=== PATIENT | male | born 1970 | race Caucasian/White ===

== ENCOUNTER 2019-04-30 01:28 | Emergency (ER) | payer MEDICAID ==
[~2019-04-30] VITALS: Ht 182.9 cm; Wt 80.0 kg
[~2019-04-30 01:28] MED LIST: ATEN50TA41 PO; CLON1TAB PO; ESOM20CA PO; LOSA25TA25 PO; OMEP20CA9; QUET300T5 PO; SERT100T PO; SERT50TA PO; TRAZ150T62
[2019-04-30 01:30] VITALS: BP 138/78
--- NOTE | 2019-04-30 01:33 | NUR ---
PT REMAINS AGITATED AT THIS TIME, DR COLEMAN IS TALKING WITH THE PT AND PT REMAINS UNCOOPERATIVE, PT STATES THAT HE DENIES THAT HE IS HOMELESS, STATES THAT HE HAS A HOME. PT REMAINS ANGRY AND STATES THAT HE WANTS TO LEAVE AND THAT HE IS GOING HOME AND CURRENTLY DENIES SI/HI. WALKS OUT BACK DOOR AT THIS TIME WITH STEADY GAIT, ENCOURAGED TO STAY, PT REMAINS HOSTILE AND THREATENING.
== END 2019-04-30 01:41 | disposition left against medical advice (07) ==
LOC: ED 01:35
DX: F10.10 Alcohol abuse, uncomplicated (principal)
CPT/HCPCS: 99283

== ENCOUNTER 2019-06-03 07:53 | Emergency (ER) | payer MEDICAID ==
[~2019-06-03] VITALS: Ht 182.9 cm; Wt 80.0 kg
--- NOTE | 2019-06-03 08:27 | NUR ---
EKG COMPLETED. LAB AT BEDSIDE FOR BLOOD WORK. PT C/O EPIGASTRIC PAIN. ERP NOTIFIED. PT DENIES ANY FURTHER NEEDS OR CONCERNS AT THIS TIME. CALL LIGHT IN REACH, [facility] SITTER AT BEDSIDE.
[2019-06-03] MEDS ORDERED: MAALOX/HYOSCYAMINE/LIDOCAINE 45 ML BTL ONE (08:29)
[2019-06-03] MEDS ORDERED: MAALOX/HYOSCYAMINE/LIDOCAINE 45 ML BTL PO ONE (08:30)
[2019-06-03] MEDS ORDERED: PLEASE ENTER HEIGHT AND WEIGHT MC SCH (08:30)
[2019-06-03] MEDS ORDERED: SODIUM CHLORIDE FLUSH 10ML SYR IVF ONE (08:30)
[2019-06-03 08:33] LABS: BASOPHILS # (AUTO) 0.04 x10^3/uL (0-0.1); BASOPHILS % (AUTO) 1 % (0-1); EOSINOPHILS # (AUTO) 0.01 x10^3/uL (0-0.4); EOSINOPHILS % (AUTO) 0 % (1-7); LYMPHOCYTES # (AUTO) 1.02 x10^3/uL (1-3.4); LYMPHOCYTES % (AUTO) 13 % (22-44); MD NO; MEAN CORPUSCULAR HEMOGLOBIN 30.5 pg (27.5-34.5); MEAN CORPUSCULAR HGB CONC 32.9 g/dL (33.2-36.2); MEAN CORPUSCULAR VOLUME 92.8 fL (81-97); MEAN PLATELET VOLUME 7.1 fL (7.4-10.4); MONOCYTES # (AUTO) 0.43 x10^3/uL (0.2-0.8); MONOCYTES % (AUTO) 5 % (2-9); NEUTROPHILS # (AUTO) 6.42 x10^3/uL (1.8-6.8); NEUTROPHILS % (AUTO) 81 % (42-75); PLATELET COUNT 215 x10^3/uL (130-400); RED BLOOD COUNT 4.88 x10^6/uL (4.38-5.82); RED CELL DISTRIBUTION WIDTH 13.5 % (9.4-14.8)
[2019-06-03 08:45] LABS: ANION GAP 8 mmol/L (5-15); CALCIUM 9.3 mg/dL (8.5-10.1); CHLORIDE 102 mmol/L (98-107); CREATININE 1.15 mg/dL (0.7-1.3)
[2019-06-03 09:47] VITALS: BP 109/56
--- NOTE | 2019-06-03 09:58 | NUR ---
PT UPDATED ON PLAN OF CARE AND INTENT TO DISCHARGE. THROUGHPUT RN NOTIFIED FOR TRANSPORTATION. PT DENIES ANY NEEDS OR CONCERNS, [place] SITTER CONTINUES AT BEDSIDE. CALL LIGHT IN REACH.
--- NOTE | 2019-06-03 10:06 | NUR ---
THROUGHPUT RN: REPORT GIVEN TO JOANIE AT [facility].
--- NOTE | 2019-06-03 10:29 | NUR ---
JOSUÉ RN: SPOKE W/ LAUREN AT [facility] WAITING ON APPROVAL FOR [facility] FROM [facility] TO [facility].
== END 2019-06-03 11:26 ==
LOC: ED 10:08
DX: I10 Essential (primary) hypertension (principal); K21.9 Gastro-esophageal reflux disease without esophagitis; F17.200 Nicotine dependence, unspecified, uncomplicated
CPT/HCPCS: 36415; 80048; 82040; 85025; 93005; 99285

== ENCOUNTER 2019-06-27 14:33 | Inpatient (IN) | payer MEDICAID ==
[~2019-06-27] VITALS: Ht 182.9 cm; Wt 71.6 kg
--- NOTE | 2019-06-27 14:52 | NUR ---
BELONGINGS SECURED IN LOCKER. EQUIPMENT AND SUPPLIES SECURED BEHIND PULL DOWN DOOR. LEARNING AND DEVELOPMENT COORDINATOR MADE AWARE OF NEED FOR SITTER.
[2019-06-27 15:05] LABS: BASOPHILS # (AUTO) 0.01 x10^3/uL (0-0.1); BASOPHILS % (AUTO) 0 % (0-1); EOSINOPHILS # (AUTO) 0.12 x10^3/uL (0-0.4); EOSINOPHILS % (AUTO) 2 % (1-7); LYMPHOCYTES # (AUTO) 1.31 x10^3/uL (1-3.4); LYMPHOCYTES % (AUTO) 18 % (22-44); MD NO; MEAN CORPUSCULAR HEMOGLOBIN 30.5 pg (27.5-34.5); MEAN CORPUSCULAR HGB CONC 33.4 g/dL (33.2-36.2); MEAN CORPUSCULAR VOLUME 91.4 fL (81-97); MEAN PLATELET VOLUME 6.9 fL (7.4-10.4); MONOCYTES # (AUTO) 0.72 x10^3/uL (0.2-0.8); MONOCYTES % (AUTO) 10 % (2-9); NEUTROPHILS # (AUTO) 5.27 x10^3/uL (1.8-6.8); NEUTROPHILS % (AUTO) 71 % (42-75); PLATELET COUNT 235 x10^3/uL (130-400); RED CELL DISTRIBUTION WIDTH 14.4 % (9.4-14.8)
--- NOTE | 2019-06-27 15:08 | NUR ---
GAEL GRAPHIC MANAGER EXAMINING PT
[2019-06-27 15:18] LABS: ALBUMIN 4.1 g/dL (3.4-5.0); ANION GAP 7 mmol/L (5-15); CALCIUM 9.3 mg/dL (8.5-10.1); CHLORIDE 102 mmol/L (98-107)
[2019-06-27 15:20] LABS: SALICYLATE LEVEL < 1.7 mg/dL (2.8-20.0)
[2019-06-27 15:21] LABS: ALANINE AMINOTRANSFERASE 31 U/L (12-78); ALKALINE PHOSPHATASE 98 U/L (45-117); BILIRUBIN,TOTAL 0.7 mg/dL (0.2-1.0); CREATININE 1.17 mg/dL (0.7-1.3); TOTAL PROTEIN 8.4 g/dL (6.4-8.2)
--- NOTE | 2019-06-27 15:27 | NUR ---
SITTER OUTSIDE ROOM IN DIRECT VIEW OF PT
--- NOTE | 2019-06-27 15:30 | NUR ---
PT SLEEPING, ON MONITOR.
[2019-06-27] MEDS: SODIUM CHLORIDE 0.9% 1,000 ML IV SCH ×2 (16:46→21:00)
[2019-06-27] MEDS ORDERED: OMEP40CA42 PO (16:48)
[2019-06-27] MEDS ORDERED: QUET400T4 PO (16:48)
[2019-06-27] MEDS ORDERED: ATEN50TA41 PO (16:48)
--- NOTE | 2019-06-27 16:53 | NUR ---
HOSPITALIST EXAMINING PT
--- NOTE | 2019-06-27 17:15 | NUR ---
PT TALKS TO STAFF AND ASKING FOR FOOD AND TO USE URINAL. PT THEN BACK TO SLEEP.
[2019-06-27 17:58] LABS: AMPHETAMINE SCREEN, URINE Positive (Negative); BARBITURATE SCREEN, URINE Negative (Negative); BENZODIAZEPINE SCREEN, URINE Negative (Negative); CANNABINOID SCREEN, URINE Positive (Negative); COCAINE SCREEN, URINE Negative (Negative); METHADONE SCREEN, URINE Negative (Negative); OPIATE SCREEN, URINE Negative (Negative)
--- NOTE | 2019-06-27 18:25 | NUR ---
PT DROWSY BUT AROUSABLE, CONTINUE TO MONITOR
--- NOTE | 2019-06-27 18:50 | NUR ---
PROVIDED DINNER TRAY
--- NOTE | 2019-06-27 19:01 | NUR ---
REPORT TO ELIZABETH PECK
--- NOTE | 2019-06-27 19:11 | NUR ---
PT EATING DINNER. NADN. ROOM SECURE. PT IN DIRECT SIGHT OF SITTER.
--- NOTE | 2019-06-27 19:22 | NUR ---
REPORT GIVEN TO EMERALD PECK.
[2019-06-27 20:41] VITALS: BP 99/58
[2019-06-28 01:34] VITALS: BP 117/63
[2019-06-28] MEDS: SODIUM CHLORIDE 0.9% 1,000 ML IV SCH ×3 (04:58→21:02)
[2019-06-28 05:14] LABS: BASOPHILS # (AUTO) 0.02 x10^3/uL (0-0.1); BASOPHILS % (AUTO) 1 % (0-1); EOSINOPHILS # (AUTO) 0.17 x10^3/uL (0-0.4); EOSINOPHILS % (AUTO) 4 % (1-7); LYMPHOCYTES # (AUTO) 1.23 x10^3/uL (1-3.4); LYMPHOCYTES % (AUTO) 26 % (22-44); MD NO; MEAN CORPUSCULAR HEMOGLOBIN 30.1 pg (27.5-34.5); MEAN CORPUSCULAR HGB CONC 33.2 g/dL (33.2-36.2); MEAN CORPUSCULAR VOLUME 90.9 fL (81-97); MEAN PLATELET VOLUME 7.3 fL (7.4-10.4); MONOCYTES # (AUTO) 0.49 x10^3/uL (0.2-0.8); MONOCYTES % (AUTO) 11 % (2-9); NEUTROPHILS # (AUTO) 2.75 x10^3/uL (1.8-6.8); NEUTROPHILS % (AUTO) 59 % (42-75); PLATELET COUNT 183 x10^3/uL (130-400); RED BLOOD COUNT 4.14 x10^6/uL (4.38-5.82); RED CELL DISTRIBUTION WIDTH 14.4 % (9.4-14.8)
[2019-06-28 05:23] LABS: ANION GAP 5 mmol/L (5-15); CALCIUM 8.6 mg/dL (8.5-10.1); CHLORIDE 110 mmol/L (98-107)
[2019-06-28 05:26] LABS: ALANINE AMINOTRANSFERASE 27 U/L (12-78); ALKALINE PHOSPHATASE 86 U/L (45-117); BILIRUBIN,TOTAL 0.3 mg/dL (0.2-1.0); CREATININE 1.17 mg/dL (0.7-1.3); TOTAL PROTEIN 6.2 g/dL (6.4-8.2)
[2019-06-28 07:33] VITALS: BP 128/76
[2019-06-28] MEDS: FOLIC ACID 1 MG TABLET PO SCH (09:01)
[2019-06-28] MEDS: THIAMINE 100MG TABLET PO SCH (09:01)
[2019-06-28] MEDS: MULTIVITAMIN 1 TABLET PO SCH (09:01)
[2019-06-28 12:40] VITALS: BP 115/68
[2019-06-28 19:30] VITALS: BP 136/71
[2019-06-29 02:27] VITALS: BP 140/82
[2019-06-29] MEDS: SODIUM CHLORIDE 0.9% 1,000 ML IV SCH ×2 (03:23→08:46)
[2019-06-29 06:21] VITALS: BP 161/85
[2019-06-29] MEDS ORDERED: ZIPRASIDONE 20MG CAPSULE PO ONE (08:30)
[2019-06-29] MEDS: THIAMINE 100MG TABLET PO SCH (08:43)
[2019-06-29] MEDS: MULTIVITAMIN 1 TABLET PO SCH (08:43)
[2019-06-29] MEDS: FOLIC ACID 1 MG TABLET PO SCH (08:43)
[2019-06-29] MEDS ORDERED: ZIPRASIDONE 20 MG INJ IM ONE (12:00)
[2019-06-29] MEDS ORDERED: SERT100T PO (15:57)
[2019-06-29] MEDS ORDERED: LOSA50TA2 PO (15:57)
[2019-06-29] MEDS ORDERED: QUET400T4 PO (15:58)
== END 2019-06-29 14:20 | DRG 918 ==
LOC: ED 15:07 → EDIP 16:35 → 4EST 20:15
PROVIDERS: ADMIT Emergency Medicine; ATTEND Emergency Medicine
DX: T43.592A Poisoning by other antipsychotics and neuroleptics, intentional self-harm, initial encounter (principal); I10 Essential (primary) hypertension; K21.9 Gastro-esophageal reflux disease without esophagitis; F15.10 Other stimulant abuse, uncomplicated; F10.10 Alcohol abuse, uncomplicated; F31.9 Bipolar disorder, unspecified; Y92.89 Other specified places as the place of occurrence of the external cause; Z59.0 Homelessness; Z91.19 Patient's noncompliance with other medical treatment and regimen; Z72.0 Tobacco use; Z88.5 Allergy status to narcotic agent; Z88.0 Allergy status to penicillin
CPT/HCPCS: 36415; 80053; 80307; 85025; 93005; 96372; 99285; G0378; J3486; J7030

== ENCOUNTER 2019-06-29 13:22 | Inpatient (IN) | payer MEDICAID ==
[~2019-06-29] VITALS: Ht 182.9 cm; Wt 64.2 kg
[~2019-06-29 13:22] MED LIST changes: +OMEP40CA42 PO; +QUET400T4 PO
[2019-06-29] MEDS ORDERED: DOCUSATE 100 MG CAPSULE PO PRN (14:00)
[2019-06-29] MEDS ORDERED: ACETAMINOPHEN 325 MG TABLET PO PRN (14:00)
[2019-06-29] MEDS ORDERED: POLYETHYLENE GLYCOL 17 GM PACKET PO PRN (14:00)
[2019-06-29] MEDS ORDERED: ONDANSETRON ODT 4 MG PO PRN (14:00)
[2019-06-29] MEDS ORDERED: BISACODYL 10 MG SUPP PR PRN (14:00)
[2019-06-29 14:54] VITALS: BP 101/76
[2019-06-29] MEDS ORDERED: SERT100T PO (15:57)
[2019-06-29] MEDS ORDERED: LOSA50TA2 PO (15:57)
[2019-06-29] MEDS ORDERED: QUET400T4 PO (15:58)
[2019-06-29 19:07] VITALS: BP 158/90
[2019-06-29 20:06] LABS: FREE T4 (FREE THYROXINE) 0.81 ng/dL (0.76-1.46); LDL/HDL RATIO 2.2 (0.5-3.0)
[2019-06-29] MEDS: QUETIAPINE 200 MG TABLET PO SCH (20:19)
[2019-06-29] MEDS: LOSARTAN 50MG TABLET PO SCH (20:40)
[2019-06-29] MEDS: ATENOLOL 50 MG TABLET PO SCH (20:40)
[2019-06-30] MEDS: OMEPRAZOLE 20 MG CAPSULE.DR PO SCH (06:07)
[2019-06-30] MEDS: ATENOLOL 50 MG TABLET PO SCH ×2 (06:07→17:32)
[2019-06-30 07:00] VITALS: BP 145/95
[2019-06-30] MEDS: SERTRALINE 100MG TABLET PO SCH (09:11)
[2019-06-30] MEDS: LOSARTAN 50MG TABLET PO SCH ×2 (09:11→20:33)
[2019-06-30 12:22] LABS: MICROSCOPIC NOT IND
[2019-06-30 12:23] LABS: CULTURE INDICATED? NO
[2019-06-30 19:21] VITALS: BP 153/85
[2019-06-30] MEDS: ZIPRASIDONE 40MG CAPSULE PO SCH (20:31)
[2019-06-30] MEDS: DIVALPROEX 500 MG TAB.ER.24H PO SCH (20:31)
[2019-06-30] MEDS: QUETIAPINE 200 MG TABLET PO SCH ×2 (20:32)
[2019-07-01 05:42] VITALS: BP 110/71
[2019-07-01] MEDS: OMEPRAZOLE 20 MG CAPSULE.DR PO SCH (06:29)
[2019-07-01] MEDS: ATENOLOL 50 MG TABLET PO SCH ×2 (06:30→18:01)
[2019-07-01 07:37] VITALS: BP 125/79
[2019-07-01] MEDS: SERTRALINE 100MG TABLET PO SCH (08:39)
[2019-07-01] MEDS: ZIPRASIDONE 40MG CAPSULE PO SCH ×2 (08:40→20:16)
[2019-07-01] MEDS: LOSARTAN 50MG TABLET PO SCH ×2 (10:11→20:17)
[2019-07-01 17:54] VITALS: BP 125/68
[2019-07-01 19:41] VITALS: BP 113/69
[2019-07-01] MEDS: QUETIAPINE 200 MG TABLET PO SCH ×2 (20:16→20:17)
[2019-07-01] MEDS: DIVALPROEX 500 MG TAB.ER.24H PO SCH (20:16)
[2019-07-02 06:04] VITALS: BP 111/67
[2019-07-02] MEDS: OMEPRAZOLE 20 MG CAPSULE.DR PO SCH (06:07)
[2019-07-02] MEDS: ATENOLOL 50 MG TABLET PO SCH ×2 (06:08→17:00)
[2019-07-02 07:15] VITALS: BP 112/71
[2019-07-02] MEDS: LOSARTAN 50MG TABLET PO SCH ×2 (08:43→20:34)
[2019-07-02] MEDS: SERTRALINE 100MG TABLET PO SCH (08:43)
[2019-07-02] MEDS: ZIPRASIDONE 40MG CAPSULE PO SCH ×2 (08:44→20:33)
[2019-07-02 16:58] VITALS: BP 114/72
[2019-07-02 19:52] VITALS: BP 109/70
[2019-07-02] MEDS: DIVALPROEX 500 MG TAB.ER.24H PO SCH (20:33)
[2019-07-02] MEDS: QUETIAPINE 200 MG TABLET PO SCH ×2 (20:34→20:35)
[2019-07-03] MEDS: OMEPRAZOLE 20 MG CAPSULE.DR PO SCH (05:56)
[2019-07-03] MEDS: ATENOLOL 50 MG TABLET PO SCH ×2 (05:56→17:30)
[2019-07-03 07:40] VITALS: BP 118/77
[2019-07-03] MEDS: ZIPRASIDONE 40MG CAPSULE PO SCH ×2 (10:15→20:45)
[2019-07-03] MEDS: LOSARTAN 50MG TABLET PO SCH ×2 (10:15→20:45)
[2019-07-03] MEDS: SERTRALINE 100MG TABLET PO SCH (10:15)
[2019-07-03 19:26] VITALS: BP 108/64
[2019-07-03] MEDS: QUETIAPINE 200 MG TABLET PO SCH (20:45)
[2019-07-03] MEDS: DIVALPROEX 500 MG TAB.ER.24H PO SCH (20:51)
[2019-07-04] MEDS: ATENOLOL 50 MG TABLET PO SCH ×2 (06:15→18:11)
[2019-07-04] MEDS: OMEPRAZOLE 20 MG CAPSULE.DR PO SCH (06:15)
[2019-07-04 07:57] VITALS: BP 108/73
[2019-07-04] MEDS: SERTRALINE 100MG TABLET PO SCH (08:32)
[2019-07-04] MEDS: ZIPRASIDONE 40MG CAPSULE PO SCH ×2 (08:32→20:22)
[2019-07-04] MEDS: LOSARTAN 50MG TABLET PO SCH ×2 (08:32→20:22)
[2019-07-04] MEDS: NICOTINE GUM 2 MG BC PRN (10:15)
[2019-07-04] MEDS: hydrOXyzine 50MG TABLET PO PRN (13:52)
[2019-07-04 19:37] VITALS: BP 126/70
[2019-07-04] MEDS: DIVALPROEX 500 MG TAB.ER.24H PO SCH (20:22)
[2019-07-04] MEDS: QUETIAPINE 200 MG TABLET PO SCH (20:22)
[2019-07-05] MEDS: OMEPRAZOLE 20 MG CAPSULE.DR PO SCH (06:08)
[2019-07-05 07:27] VITALS: BP 132/73
[2019-07-05] MEDS ORDERED: ZIPRASIDONE 20MG CAPSULE ONE (09:00)
[2019-07-05] MEDS: ATENOLOL 50 MG TABLET PO SCH ×3 (09:03→20:17)
[2019-07-05] MEDS: LOSARTAN 50MG TABLET PO SCH ×2 (09:03→20:09)
[2019-07-05] MEDS: SERTRALINE 100MG TABLET PO SCH (09:03)
[2019-07-05] MEDS: ZIPRASIDONE 40MG CAPSULE PO SCH ×2 (09:04→20:09)
[2019-07-05] MEDS: NICOTINE GUM 2 MG BC PRN ×2 (09:14→17:55)
[2019-07-05] MEDS: hydrOXyzine 50MG TABLET PO PRN (11:16)
[2019-07-05] MEDS: QUETIAPINE 200 MG TABLET PO SCH (20:09)
[2019-07-05] MEDS: DIVALPROEX 500 MG TAB.ER.24H PO SCH (20:09)
[2019-07-05 20:10] VITALS: BP 125/78
[2019-07-06] MEDS: OMEPRAZOLE 20 MG CAPSULE.DR PO SCH (05:45)
[2019-07-06 07:38] VITALS: BP 110/69
[2019-07-06] MEDS: SERTRALINE 100MG TABLET PO SCH (09:00)
[2019-07-06] MEDS ORDERED: ZIPRASIDONE 20MG CAPSULE ONE (09:23)
[2019-07-06] MEDS: LOSARTAN 50MG TABLET PO SCH ×2 (09:25→20:33)
[2019-07-06] MEDS: ATENOLOL 50 MG TABLET PO SCH ×2 (09:25→20:32)
[2019-07-06] MEDS: ZIPRASIDONE 40MG CAPSULE PO SCH ×2 (09:33→20:32)
[2019-07-06] MEDS: NICOTINE GUM 2 MG BC PRN (09:36)
[2019-07-06 20:01] VITALS: BP 115/78
[2019-07-06] MEDS: QUETIAPINE 200 MG TABLET PO SCH (20:32)
[2019-07-06] MEDS: hydrOXyzine 50MG TABLET PO PRN (20:32)
[2019-07-06] MEDS: DIVALPROEX 500 MG TAB.ER.24H PO SCH (20:35)
[2019-07-07] MEDS: OMEPRAZOLE 20 MG CAPSULE.DR PO SCH (06:05)
[2019-07-07 07:20] VITALS: BP 127/85
[2019-07-07] MEDS: ZIPRASIDONE 40MG CAPSULE PO SCH (10:36)
[2019-07-07] MEDS: LOSARTAN 50MG TABLET PO SCH (10:36)
[2019-07-07] MEDS: SERTRALINE 100MG TABLET PO SCH (10:37)
[2019-07-07] MEDS: ATENOLOL 50 MG TABLET PO SCH (10:37)
== END 2019-07-07 10:55 | disposition home or self-care (01) | DRG 885 ==
LOC: 3E 14:46
PROVIDERS: ADMIT Psychiatry & Neurology Psychosomatic Medicine; ATTEND Psychiatry & Neurology Psychosomatic Medicine
DX: F31.60 Bipolar disorder, current episode mixed, unspecified (principal); F10.20 Alcohol dependence, uncomplicated; F17.200 Nicotine dependence, unspecified, uncomplicated; F41.9 Anxiety disorder, unspecified; Z88.6 Allergy status to analgesic agent; Z88.0 Allergy status to penicillin; F60.9 Personality disorder, unspecified; G47.00 Insomnia, unspecified; I10 Essential (primary) hypertension; I25.10 Atherosclerotic heart disease of native coronary artery without angina pectoris; K21.9 Gastro-esophageal reflux disease without esophagitis; Z79.899 Other long term (current) drug therapy
CPT/HCPCS: 36415; 71045; 80061; 81003; 82140; 84439; 84443; Q0162

== ENCOUNTER 2019-07-11 04:09 | Emergency (ER) | payer MEDICAID ==
[~2019-07-11] VITALS: Ht 182.9 cm; Wt 68.0 kg
[~2019-07-11 04:09] MED LIST changes: +LOSA50TA2 PO
--- NOTE | 2019-07-11 04:43 | NUR ---
PT CHANGED INTO GOWN. BELONGINGS PLACED IN 3 PT BELONGINGS BAGS AND 1 GREEN BAG. 4 BAGS TOTAL SECURED. SITTER AT DOORWAY IN SECURED ROOM.
[2019-07-11 05:34] LABS: BASOPHILS # (AUTO) 0.04 x10^3/uL (0-0.1); BASOPHILS % (AUTO) 1 % (0-1); EOSINOPHILS # (AUTO) 0.16 x10^3/uL (0-0.4); EOSINOPHILS % (AUTO) 2 % (1-7); LYMPHOCYTES # (AUTO) 1.56 x10^3/uL (1-3.4); LYMPHOCYTES % (AUTO) 22 % (22-44); MD NO; MEAN CORPUSCULAR HEMOGLOBIN 30.5 pg (27.5-34.5); MEAN CORPUSCULAR HGB CONC 33.7 g/dL (33.2-36.2); MEAN CORPUSCULAR VOLUME 90.4 fL (81-97); MEAN PLATELET VOLUME 7.6 fL (7.4-10.4); MONOCYTES # (AUTO) 0.69 x10^3/uL (0.2-0.8); MONOCYTES % (AUTO) 10 % (2-9); NEUTROPHILS # (AUTO) 4.55 x10^3/uL (1.8-6.8); NEUTROPHILS % (AUTO) 65 % (42-75); PLATELET COUNT 215 x10^3/uL (130-400); RED BLOOD COUNT 4.25 x10^6/uL (4.38-5.82); RED CELL DISTRIBUTION WIDTH 14.5 % (9.4-14.8)
--- NOTE | 2019-07-11 05:40 | NUR ---
URINE COLLECTED AND SENT TO LAB. SITTER OUTSIDE SECURED ROOM. WILL CONT TO MONITOR.
[2019-07-11 05:45] LABS: ALBUMIN 4.1 g/dL (3.4-5.0); ANION GAP 10 mmol/L (5-15); CHLORIDE 106 mmol/L (98-107); CREATININE 1.39 mg/dL (0.7-1.3); SALICYLATE LEVEL 2.3 mg/dL (2.8-20.0)
[2019-07-11 05:54] LABS: AMPHETAMINE SCREEN, URINE Positive (Negative); BARBITURATE SCREEN, URINE Negative (Negative); BENZODIAZEPINE SCREEN, URINE Negative (Negative); CANNABINOID SCREEN, URINE Positive (Negative); COCAINE SCREEN, URINE Negative (Negative); METHADONE SCREEN, URINE Negative (Negative); OPIATE SCREEN, URINE Negative (Negative)
--- NOTE | 2019-07-11 06:59 | NUR ---
CARE ASSUMED. PT RESTING ON GURNEY. CALM. SITTER AT BEDSIDE. PT DENIES NEEDS
[2019-07-11] MEDS ORDERED: ZIPRASIDONE 20 MG INJ IM ONE ×2 (07:46→08:00)
--- NOTE | 2019-07-11 08:50 | NUR ---
PT AGITATED WITH OVER HOLD STATUS. ATTEMPTED TO DEESCALATE. PT REFUSES TO RETURN TO ROOM. SECURITY CALLED. PT AGRESSIVE WITH SECURITY YELLING AND SWEARING. PT RESTRAINED ON GURNEY WITH 4POINT RESTRAINTS AND MEDICATED PER ORDERS Addendum: 07/11/19 at 1222 by JSHEA TIME CHANGE TO 0800
--- NOTE | 2019-07-11 09:25 | NUR ---
pt relaxed. asleep on [place]. responds to staff.
--- NOTE | 2019-07-11 11:50 | NUR ---
PT RELEASED FROM RESTRAINTS. PT COOPERATIVE WITH STAFF. PT GIVEN MEAL TRAY AND PO FLUIDS
--- NOTE | 2019-07-11 12:36 | NUR ---
700 URINE IN URINAL
--- NOTE | 2019-07-11 13:15 | NUR ---
REPORT FROM CISCO MAYO. PT ASLEEP IN BED ON HIS SIDE. NAD NOTED AT THIS TIME. SITTER OUTSIDE OF ROOM FOR DIRECT OBERVATIONS AND Q15 MIN SAFETY CHECKS.
--- NOTE | 2019-07-11 14:00 | NUR ---
PACKET FAXED TO [facility], [facility] AND [facility]
--- NOTE | 2019-07-11 14:24 | NUR ---
Krysta Romo is holding off on reviewing pt due to current aquity of current pts. Will be re-evaluating pt tomorrow.
--- NOTE | 2019-07-11 14:26 | NUR ---
PT RESTING IN BED, NAD NOTED AT THIS TIME. SITTER OUTSIDE OF ROOM FOR DIRECT OBSERVATION AND Q15 MIN SAFETY CHECKS. PT GIVEN PO FLUIDS.
--- NOTE | 2019-07-11 15:34 | NUR ---
PT LAYING BACK IN BED, GIVEN PO FLUIDS. DIET TRAY ODERED
--- NOTE | 2019-07-11 16:20 | NUR ---
CALL FROM RERE GUTIERREZ. REPORT GIVEN AND NOTIFIED OF PT'S [place] AND [place] PRESCRIPTIONS. NAD NOTED IN PT AT THIS TIME. RESPIRATIONS EVEN AND UNLABORED ON RA. WATCHING TELEVISION. SITTER OUTSIDE OF ROOM FOR DIRECT OBSERVATION AND Q15 MIN SAFETY CHECKS.
--- NOTE | 2019-07-11 17:31 | NUR ---
PT RECLINED IN BED WATCHING TELEVISION. NAD NOTED AT THIS TIME. PT FINISHED WITH FOOD. SITTER OUTSIDE OF ROOM FOR DIRECT OBSERVATION AND Q15 MIN SAFETY CHECKS.
--- NOTE | 2019-07-11 18:58 | NUR ---
REPORT TO CISOC FAIR. PT LAYING BACK WATCHING TELEVISION. NAD NOTED AT THIS TIME. SITTER OUTSIDE OF ROOM FOR DIRECT OBSERVATION AND Q15 MIN SAFETY CHECKS.
[2019-07-11] MEDS ORDERED: QUETIAPINE 100MG TABLET ONE (20:52)
[2019-07-11 20:56] VITALS: BP 172/98
[2019-07-11] MEDS ORDERED: QUETIAPINE 100MG TABLET PO SCH (21:00)
[2019-07-11] MEDS ORDERED: ZIPRASIDONE 40MG CAPSULE PO SCH (21:00)
--- NOTE | 2019-07-11 21:04 | NUR ---
PT RESTING ON [place]. MEDICATED PER AUG. PT DENIES FURTHER NEEDS AT THIS TIME.
--- NOTE | 2019-07-11 22:05 | NUR ---
PT PLACED ON HOSPITAL BED AND PROVIDED WATER. ALL NEEDS MET AT THIS TIME. SITTER IN HALLWAY WITHIN LINE OF SIGHT, ROOM SECURED
--- NOTE | 2019-07-11 23:01 | NUR ---
REPORT GIVEN TO LINDSEY DIAS. WILL CALL BACK.
--- NOTE | 2019-07-12 01:19 | NUR ---
ROMELIA RN: CALLED [facility] AND GAVE ALL PATIENT INFORMATION INCLUDING MEDICAID ID NUMBER LOOKED UP BY ADMITTING STAFF. PER [facility] THEY ARE UNABLE TO LOOK UP PT. MULLEN AWARE OF THIS. ETA [phone] FOR TRANSPORT TO [facility].
[2019-07-12] MEDS ORDERED: ATENOLOL 50 MG TABLET PO ONE (01:31)
[2019-07-12] MEDS ORDERED: LOSARTAN 50MG TABLET PO ONE (01:31)
[2019-07-12] MEDS ORDERED: SERTRALINE 100MG TABLET PO SCH (09:00)
== END 2019-07-12 01:54 ==
LOC: ED 04:51
DX: R45.851 Suicidal ideations (principal); F32.9 Major depressive disorder, single episode, unspecified; F10.129 Alcohol abuse with intoxication, unspecified; F15.129 Other stimulant abuse with intoxication, unspecified; F17.210 Nicotine dependence, cigarettes, uncomplicated; K21.9 Gastro-esophageal reflux disease without esophagitis; I10 Essential (primary) hypertension; Y90.0 Blood alcohol level of less than 20 mg/100 ml
CPT/HCPCS: 36415; 80048; 80307; 82040; 85025; 96372; 99285; J3486

== ENCOUNTER 2019-09-11 01:48 | Emergency (ER) | payer MEDICAID ==
[~2019-09-11] VITALS: Ht 182.9 cm; Wt 72.3 kg
[2019-09-11 01:50] VITALS: BP 168/90
--- NOTE | 2019-09-11 02:09 | NUR ---
PT SEATED IN CHAIR AT NURSES STATION FOR SAFETY, TALKING WITH DR MONGE. STATES THAT HE WALKED HERE A MILE TONIGHT AND THAT IT IS COLD OUT AND HE IS CURRENTLY HOMELESS. NO MENTION SI AT THIS TIME. PT PROVIDED WITH FLUIDS.
--- NOTE | 2019-09-11 02:43 | NUR ---
PT RESTING QUIETLY AT THIS TIME, NAD, HAS FINISHED PO JUICE.
--- NOTE | 2019-09-11 03:20 | NUR ---
SLEEPING QUIETLY, DENTURES FELL OUT ONTO FLOOR, PLACED IN BAG AND PLACED IN PTS R COAT POCKET
--- NOTE | 2019-09-11 05:12 | NUR ---
PT RESTING QUIETLY, RESP RATE EVEN AND REGULAR. AWAIT SOBRIETY FOR SAFE DISCHARGE PT TOLD MD HE "HAD A FEW BEERS" EARLIER.
--- NOTE | 2019-09-11 06:07 | NUR ---
PT AWAKE AND ALERT AT THIS TIME, OFFER OF CAB VOUCHER AND PT REFUSES STATES THAT HE JUST WANTS TO LEAVE. CONTINUE TO OFFER CAB VOUCHER AND PT REFUSES. AMBULATE OUT DOOR WITH STEADY GAIT.
== END 2019-09-11 06:28 | disposition left against medical advice (07) ==
LOC: ED 06:22
DX: F10.220 Alcohol dependence with intoxication, uncomplicated (principal); I10 Essential (primary) hypertension; K21.9 Gastro-esophageal reflux disease without esophagitis; Z72.9 Problem related to lifestyle, unspecified
CPT/HCPCS: 99281

== ENCOUNTER 2020-05-27 17:45 | Emergency (ER) | payer MEDICAID ==
[~2020-05-27] VITALS: Ht 182.9 cm; Wt 74.9 kg
--- NOTE | 2020-05-27 17:58 | NUR ---
manager equipment note: vodka drained in sink with pt permission
[2020-05-27] MEDS ORDERED: SODIUM CHLORIDE FLUSH 10ML SYR IVF ONE (18:30)
--- NOTE | 2020-05-27 18:41 | NUR ---
PT STATES HE PRESENTED TO ER BECAUSE HE HAS A HARD TIME BREATHING WHEN TAKING A DEEP BREATH. DENIES CP AT THIS TIME. WHEN ASKED HOW MUCH HE DRANK TODAY HE SAID HARLDY ANY ALCOHOL. PT HAD ARRIVED WITH A BOTTLE OF VODKA IN HIS HAND.
--- NOTE | 2020-05-27 19:03 | NUR ---
REPORT TO TERESITA PECK
[2020-05-27 19:18] LABS: BASOPHILS % (AUTO) 1 % (0-1); EOSINOPHILS % (AUTO) 3 % (1-7); LYMPHOCYTES % (AUTO) 36 % (22-44); MEAN CORPUSCULAR HEMOGLOBIN 32.2 pg (27.5-34.5); MEAN CORPUSCULAR HGB CONC 35.1 g/dL (33.2-36.2); MEAN PLATELET VOLUME 7.1 fL (7.4-10.4); MONOCYTES % (AUTO) 8 % (2-9); NEUTROPHILS % (AUTO) 52 % (42-75); PLATELET COUNT 225 x10^3/uL (130-400); RED BLOOD COUNT 4.56 x10^6/uL (4.38-5.82); RED CELL DISTRIBUTION WIDTH 16.4 % (9.4-14.8)
--- NOTE | 2020-05-27 19:22 | NUR ---
REPORT FROM DHAVAL PECK. PIV PLACED AND LABS DRAWN. PT SLEEPING IN NAD. CALL LIGHT IN REACH
[2020-05-27 19:27] LABS: MD NO
[2020-05-27 19:39] LABS: ALANINE AMINOTRANSFERASE 14 U/L (12-78); ALBUMIN 3.4 g/dL (3.4-5.0); ANION GAP 7 mmol/L (5-15); CALCIUM 8.3 mg/dL (8.5-10.1); CHLORIDE 108 mmol/L (98-107); CREATININE 1.06 mg/dL (0.7-1.3)
[2020-05-27 19:43] LABS: ALKALINE PHOSPHATASE 97 U/L (45-117); BILIRUBIN,TOTAL 0.2 mg/dL (0.2-1.0); TOTAL PROTEIN 7.4 g/dL (6.4-8.2); TROPONIN I < 0.015 ng/mL (0.000-0.045)
--- NOTE | 2020-05-27 20:27 | NUR ---
PT BACK FROM CT. BP IMPROVED. PT SLEEPING IN NAD. CALL LIGHT IN REACH
[2020-05-27 21:23] VITALS: BP 178/113
[2020-05-27] MEDS ORDERED: OMNIPAQUE 350 MG/ML, 100ML BOTTLE ONE (23:01)
== END 2020-05-27 21:47 | disposition home or self-care (01) ==
LOC: ED 21:06
DX: R07.89 Other chest pain (principal); R06.00 Dyspnea, unspecified; R94.31 Abnormal electrocardiogram [ECG] [EKG]; F10.120 Alcohol abuse with intoxication, uncomplicated; I10 Essential (primary) hypertension; K21.9 Gastro-esophageal reflux disease without esophagitis; Y90.0 Blood alcohol level of less than 20 mg/100 ml
CPT/HCPCS: 36415; 71045; 71275; 80053; 83690; 83880; 84484; 85025; 85379; 93005; 99285; Q9967